=== PATIENT | male | born 1945 | race Caucasian/White ===

== ENCOUNTER 2020-12-17 00:45 | Inpatient (IN) ==
[2020-12-17] MEDS ORDERED: *HR* Promethazine 25 MG/ML VIAL IM PRN (05:14)
[2020-12-17] MEDS ORDERED: Naloxone 0.4 MG/ML INJ IVP PRN (05:14)
[2020-12-17] MEDS ORDERED: Melatonin 3 MG TABLET PO PRN (05:14)
[2020-12-17] MEDS ORDERED: Perflutren Lipid Microsphere 1.3 ML in 0.9 % Sodium Chloride 8.7 ML IVP PRN (05:17)
[2020-12-17] MEDS: Pantoprazole 40 MG in 0.9 % Sodium Chloride Mini Bag 100 ML IVC SCH ×4 (05:42→20:07)
[2020-12-17] MEDS: Ringers Solution, Lactated 1,000 ML IVC SCH ×2 (06:07→13:36)
[2020-12-17 07:05] LABS: Mean Corpuscular Hemoglobin 20.1 pg (28.0-33.3); Nucleated Red Blood Cells 0.6 /100 WBC (0)
[2020-12-17 07:06] LABS: INR 1.2; Prothrombin Time 14.1 Seconds (9.4-12.1)
[2020-12-17 07:07] LABS: Basophils # 0.1 K/mcL (0.0-0.2); Basophils % 0.5 %; Eosinophils # 0.1 K/mcL (0.0-0.6); Eosinophils % 0.8 %; Hematocrit 29.8 % (37.5-50.1); Hemoglobin 8.3 g/dL (12.9-16.9); Immature Granulocytes % 0.5 % (0-4); Lymphocytes # 1.6 K/mcL (0.6-4.6); Lymphocytes % 15.8 %; Mean Corpuscular HGB Conc 27.9 g/dL (31.6-35.5); Mean Corpuscular Volume 72.3 fL (83.0-100.0); Mean Platelet Volume 8.7 fL (9.4-12.4); Monocytes # 1.1 K/mcL (0.0-1.3); Monocytes % 10.8 %; Neutrophils # 7.2 K/mcL (1.6-8.9); Platelet Count 383 K/mcL (140-400); Red Blood Count 4.12 M/mcL (4.19-5.50); Red Cell Distribution Width 21.6 % (11.5-14.5); Segmented Neutrophils % 71.6 %
[2020-12-17 07:25] LABS: % Iron Saturation 7 % (20-55); Alanine Aminotransferase 16 Units/L (7-52); Albumin 3.7 g/dL (3.5-5.7); Albumin/Globulin Ratio 1.3 (1.1-2.2); Alkaline Phosphatase 31 Units/L (34-104); Aspartate Amino Transferase 16 Units/L (13-39); BUN/Creatinine Ratio 10 (6-26); Bilirubin,Total 0.8 mg/dL (0.3-1.0); Blood Urea Nitrogen 10 mg/dL (8-23); Calcium 8.7 mg/dL (8.6-10.3); Carbon Dioxide 21 mEq/L (23-29); Chloride 104 mEq/L (98-107); Globulin 2.8 g/dL (2.4-3.5); Glucose 107 mg/dL (70-105); Iron 31 mcg/dL (65-175); Magnesium 2.1 mg/dL (1.6-2.6); Osmolality,Calculated 278 (280-300); Potassium 4.1 mEq/L (3.5-5.1); Sodium 134 mEq/L (136-145); Total Protein 6.5 g/dL (6.4-8.9); Transferrin 332 mg/dL (203-362); eGFR For African Americans > 60 (> 60); eGFR For Non-African Americans > 60 (> 60)
[2020-12-17 07:56] LABS: Hypochromasia Present (Not Present); Platelet Estimate Normal (Normal)
[2020-12-17 07:59] LABS: Ferritin < 8 ng/mL (20-250)
[2020-12-17 08:11] LABS: Immature Reticulocyte % 56.1 % (11.0-38.0); Retculocyte # 0.06 M/mcL (0.05-0.10); Reticulocyte % 1.4 % (1.6-2.8)
[2020-12-17 11:15] LABS: Folate 16.2 ng/mL (3.0-16.0)
[2020-12-17 11:52] LABS: Hematocrit 30.4 % (37.5-50.1); Hemoglobin 8.5 g/dL (12.9-16.9)
[2020-12-17] MEDS ORDERED: Iron Sucrose Complex 200 MG in 0.9 % Sodium Chloride 100 ML IVPB ONE (12:13)
[2020-12-17] MEDS ORDERED: SODIUM CHLORIDE/NAHCO3/KCL/PEG 4,000 ML SOLN.RECON PO ONE (17:00)
[2020-12-17 23:03] LABS: Hematocrit 31.7 % (37.5-50.1); Hemoglobin 8.6 g/dL (12.9-16.9)
[2020-12-18] MEDS: Pantoprazole 40 MG in 0.9 % Sodium Chloride Mini Bag 100 ML IVC SCH ×5 (01:15→23:48)
[2020-12-18 01:50] LABS: Hematocrit 32.8 % (37.5-50.1); Nucleated Red Blood Cells 0.5 /100 WBC (0)
[2020-12-18 01:52] LABS: Basophils % 0.4 %; Eosinophils # 0.1 K/mcL (0.0-0.6); Eosinophils % 0.8 %; Hemoglobin 8.7 g/dL (12.9-16.9); Immature Granulocytes % 0.3 % (0-4); Lymphocytes # 1.3 K/mcL (0.6-4.6); Lymphocytes % 11.8 %; Mean Corpuscular HGB Conc 26.5 g/dL (31.6-35.5); Mean Corpuscular Hemoglobin 19.3 pg (28.0-33.3); Mean Corpuscular Volume 72.7 fL (83.0-100.0); Mean Platelet Volume 8.7 fL (9.4-12.4); Monocytes # 1.1 K/mcL (0.0-1.3); Monocytes % 10.3 %; Neutrophils # 8.3 K/mcL (1.6-8.9); Platelet Count 384 K/mcL (140-400); Red Blood Count 4.51 M/mcL (4.19-5.50); Red Cell Distribution Width 21.2 % (11.5-14.5); Segmented Neutrophils % 76.4 %; White Blood Count 10.9 K/mcL (4.3-11.1)
[2020-12-18 01:55] LABS: Hypochromasia Present (Not Present); Platelet Estimate Normal (Normal)
[2020-12-18 02:03] LABS: INR 1.3; Prothrombin Time 14.9 Seconds (9.4-12.1)
[2020-12-18 02:09] LABS: BUN/Creatinine Ratio 10 (6-26); Blood Urea Nitrogen 9 mg/dL (8-23); Calcium 7.8 mg/dL (8.6-10.3); Carbon Dioxide 22 mEq/L (23-29); Chloride 102 mEq/L (98-107); Glucose 114 mg/dL (70-105); Magnesium 1.8 mg/dL (1.6-2.6); Osmolality,Calculated 278 (280-300); Potassium 3.9 mEq/L (3.5-5.1); Sodium 134 mEq/L (136-145); eGFR For African Americans > 60 (> 60); eGFR For Non-African Americans > 60 (> 60)
[2020-12-18] MEDS ORDERED: *HR* Propofol 200 MG/20 ML VIAL IVP ONE ×2 (09:30→11:22)
[2020-12-18] MEDS ORDERED: Lidocaine -MPF 2% 2 ML VIAL ONE (09:31)
[2020-12-18 11:28] LABS: Influenza A PCR Negative (Negative); Influenza B PCR Negative (Negative); Resp. Syncytial Virus PCR Negative (Negative); SARS-CoV-2 by PCR (In House) Negative (Negative)
[2020-12-18] MEDS: Ondansetron 4 MG/2 ML VIAL IVP PRN (15:56)
[2020-12-18] MEDS ORDERED: Acetaminophen IV 1,000 MG/100 ML BAG IVPB ONE (16:28)
[2020-12-18] MEDS ORDERED: 0.9 % Sodium Chloride 1,000 ML IVC ONE (17:54)
[2020-12-18 18:14] LABS: Hematocrit 28.6 % (37.5-50.1); Hemoglobin 7.9 g/dL (12.9-16.9)
[2020-12-18 18:23] LABS: BUN/Creatinine Ratio 9 (6-26); Blood Urea Nitrogen 9 mg/dL (8-23); Calcium 7.3 mg/dL (8.6-10.3); Carbon Dioxide 19 mEq/L (23-29); Chloride 107 mEq/L (98-107); Glucose 102 mg/dL (70-105); Osmolality,Calculated 281 (280-300); Potassium 3.8 mEq/L (3.5-5.1); Sodium 136 mEq/L (136-145); eGFR For African Americans > 60 (> 60); eGFR For Non-African Americans > 60 (> 60)
[2020-12-18] MEDS: Piperacillin/Tazobactam 3.375 GM in 0.9 % Sodium Chloride Mini Bag 100 ML IVPB SCH ×2 (18:46→23:47)
[2020-12-18 19:02] LABS: Bilirubin,Urine Negative (Negative); Blood,Urine Negative (Negative); Clarity,Urine Clear (Clear); Color,Urine Colorless (Yellow); Glucose,Urine (UA) Normal (Normal); Ketones,Urine Trace mg/dL (Negative); Leukocyte Esterase,Urine Negative (Negative); Nitrite,Urine Negative (Negative); PH,Urine 6.5 pH Units (5.0-8.0); Protein,Urine Negative (Neg-Trace); Specific Gravity,Urine 1.011 (1.010-1.025); Urobilinogen,Urine Normal (Normal)
[2020-12-18 21:18] LABS: Hematocrit 29.1 % (37.5-50.1); Hemoglobin 7.9 g/dL (12.9-16.9)
[2020-12-19 06:45] LABS: Nucleated Red Blood Cells 0.1 /100 WBC (0); Segmented Neutrophils % 87.4 %
[2020-12-19 06:46] LABS: Basophils # 0.1 K/mcL (0.0-0.2); Basophils % 0.3 %; Hematocrit 29.1 % (37.5-50.1); Hemoglobin 7.8 g/dL (12.9-16.9); Immature Granulocytes % 0.5 % (0-4); Lymphocytes # 1.3 K/mcL (0.6-4.6); Lymphocytes % 5.6 %; Mean Corpuscular HGB Conc 26.8 g/dL (31.6-35.5); Mean Corpuscular Hemoglobin 19.8 pg (28.0-33.3); Mean Corpuscular Volume 73.9 fL (83.0-100.0); Mean Platelet Volume 9.4 fL (9.4-12.4); Monocytes # 1.4 K/mcL (0.0-1.3); Monocytes % 6.2 %; Platelet Count 348 K/mcL (140-400); Red Blood Count 3.94 M/mcL (4.19-5.50); Red Cell Distribution Width 22.4 % (11.5-14.5); White Blood Count 23.3 K/mcL (4.3-11.1)
[2020-12-19 06:48] LABS: Anisocytosis 1+ (Not Present); Hypochromasia Present (Not Present); Neutrophils # 20.4 K/mcL (1.6-8.9); Platelet Estimate Normal (Normal)
[2020-12-19] MEDS ORDERED: 0.9 % Sodium Chloride 250 ML IVC SCH (07:45)
[2020-12-19 09:11] LABS: BUN/Creatinine Ratio 8 (6-26); Blood Urea Nitrogen 7 mg/dL (8-23); Calcium 7.4 mg/dL (8.6-10.3); Carbon Dioxide 19 mEq/L (23-29); Chloride 107 mEq/L (98-107); Glucose 98 mg/dL (70-105); Osmolality,Calculated 282 (280-300); Potassium 3.6 mEq/L (3.5-5.1); Sodium 137 mEq/L (136-145); eGFR For African Americans > 60 (> 60); eGFR For Non-African Americans > 60 (> 60)
[2020-12-19] MEDS ORDERED: *HR* FentaNYL (PF) 100 MCG/2 ML VIAL ONE ×2 (09:26→10:54)
[2020-12-19] MEDS ORDERED: *HR* Midazolam HCl 2 MG/2 ML VIAL ONE (09:26)
[2020-12-19] MEDS ORDERED: *HR* Succinylcholine 200 MG/10 ML VIAL IVP ONE (09:26)
[2020-12-19] MEDS ORDERED: Ondansetron 4 MG/2 ML VIAL ONE (09:26)
[2020-12-19] MEDS ORDERED: *HR* Propofol 200 MG/20 ML VIAL IVP ONE (09:26)
[2020-12-19] MEDS ORDERED: *HR* Rocuronium Bromide 50 MG/5 ML VIAL ONE (09:26)
[2020-12-19] MEDS ORDERED: Lidocaine -MPF 2% 2 ML VIAL ONE (09:26)
[2020-12-19] MEDS ORDERED: Dexamethasone 4 MG/ML VIAL ONE (09:26)
[2020-12-19] MEDS ORDERED: Lidocaine HCL 4 ML Topical Solution (Laryng-O-Jet Kit Sterile Pak) TP ONE (09:26)
[2020-12-19] MEDS ORDERED: *HR* Phenylephrine 10 MG/ML VIAL ONE (09:30)
[2020-12-19] MEDS ORDERED: *HR* Etomidate 40 MG/20 ML VIAL IVP ONE (09:53)
[2020-12-19] MEDS ORDERED: Heparin 1,000 UNITS/500 mL 500 ML ONE (09:57)
[2020-12-19] MEDS: Piperacillin/Tazobactam 3.375 GM in 0.9 % Sodium Chloride Mini Bag 100 ML IVPB SCH ×2 (10:45→18:09)
[2020-12-19] MEDS ORDERED: *HR* OxyCODONE Immed Rel 5 MG TABLET PO PRN (11:26)
[2020-12-19] MEDS ORDERED: *HR* HYDROmorphone PF 0.5 MG/0.5 ML SYRINGE IVP PRN (11:26)
[2020-12-19] MEDS ORDERED: Sugammadex Sodium 200 MG/2 ML VIAL IV ONE (11:41)
[2020-12-19 17:16] LABS: Hematocrit 38.8 % (37.5-50.1); Hemoglobin 10.6 g/dL (12.9-16.9)
[2020-12-20] MEDS: Piperacillin/Tazobactam 3.375 GM in 0.9 % Sodium Chloride Mini Bag 100 ML IVPB SCH ×3 (03:14→18:38)
[2020-12-20 05:52] LABS: Lymphocytes % 2.9 %; Segmented Neutrophils % 91.7 %
[2020-12-20 05:53] LABS: Hematocrit 35.6 % (37.5-50.1); Immature Granulocytes % 0.5 % (0-4); Lymphocytes # 0.6 K/mcL (0.6-4.6); Mean Corpuscular HGB Conc 28.1 g/dL (31.6-35.5); Mean Corpuscular Volume 74.8 fL (83.0-100.0); Mean Platelet Volume 8.9 fL (9.4-12.4); Monocytes % 4.9 %; Neutrophils # 18.4 K/mcL (1.6-8.9); Nucleated Red Blood Cells 0.1 /100 WBC (0); Platelet Count 318 K/mcL (140-400); Red Blood Count 4.76 M/mcL (4.19-5.50); Red Cell Distribution Width 24.1 % (11.5-14.5); White Blood Count 20.1 K/mcL (4.3-11.1)
[2020-12-20 06:12] LABS: Anisocytosis 3+ (Not Present); Microcytosis Present (Not Present); Platelet Estimate Normal (Normal); Polychromasia 2+ (Not Present)
[2020-12-20 06:18] LABS: BUN/Creatinine Ratio 16 (6-26); Blood Urea Nitrogen 13 mg/dL (8-23); Calcium 7.6 mg/dL (8.6-10.3); Carbon Dioxide 22 mEq/L (23-29); Chloride 104 mEq/L (98-107); Glucose 141 mg/dL (70-105); Osmolality,Calculated 280 (280-300); Potassium 3.7 mEq/L (3.5-5.1); Sodium 134 mEq/L (136-145); eGFR For African Americans > 60 (> 60); eGFR For Non-African Americans > 60 (> 60)
[2020-12-20] MEDS: Ondansetron 4 MG/2 ML VIAL IVP PRN (16:41)
[2020-12-20] MEDS: Pantoprazole 40 MG VIAL IVP SCH (21:09)
[2020-12-21 01:21] LABS: Basophils % 0.1 %; Hemoglobin 11.5 g/dL (12.9-16.9); Red Cell Distribution Width 25.3 % (11.5-14.5)
[2020-12-21 01:23] LABS: Hematocrit 41.8 % (37.5-50.1); Immature Granulocytes % 0.4 % (0-4); Lymphocytes # 0.8 K/mcL (0.6-4.6); Mean Corpuscular HGB Conc 27.5 g/dL (31.6-35.5); Mean Corpuscular Hemoglobin 21.3 pg (28.0-33.3); Mean Corpuscular Volume 77.4 fL (83.0-100.0); Mean Platelet Volume 9.6 fL (9.4-12.4); Monocytes # 1.2 K/mcL (0.0-1.3); Monocytes % 5.8 %; Nucleated Red Blood Cells 0.2 /100 WBC (0); Platelet Count 428 K/mcL (140-400); Segmented Neutrophils % 89.7 %; White Blood Count 20.8 K/mcL (4.3-11.1)
[2020-12-21 01:29] LABS: Neutrophils # 18.7 K/mcL (1.6-8.9)
[2020-12-21 01:41] LABS: BUN/Creatinine Ratio 23 (6-26); Blood Urea Nitrogen 21 mg/dL (8-23); Calcium 7.9 mg/dL (8.6-10.3); Carbon Dioxide 23 mEq/L (23-29); Chloride 104 mEq/L (98-107); Glucose 121 mg/dL (70-105); Osmolality,Calculated 288 (280-300); Potassium 3.4 mEq/L (3.5-5.1); Sodium 137 mEq/L (136-145); eGFR For African Americans > 60 (> 60); eGFR For Non-African Americans > 60 (> 60)
[2020-12-21 02:09] LABS: Anisocytosis 2+ (Not Present); Hypochromasia Present (Not Present); Platelet Estimate Normal (Normal); Poikilocytosis 1+ (Not Present); Polychromasia 2+ (Not Present)
[2020-12-21] MEDS: Piperacillin/Tazobactam 3.375 GM in 0.9 % Sodium Chloride Mini Bag 100 ML IVPB SCH ×3 (03:39→23:57)
[2020-12-21] MEDS ORDERED: Potassium Chloride 40 MEQ, Lidocaine 1% 2 ML in 0.9 % Sodium Chloride 500 ML IVPB ONE (07:23)
[2020-12-21] MEDS ORDERED: 0.9 % Sodium Chloride 1,000 ML IVC SCH (09:45)
[2020-12-21] MEDS: Pantoprazole 40 MG VIAL IVP SCH ×2 (10:00→22:04)
[2020-12-21] MEDS: Azithromycin 500 MG in 0.9 % Sodium Chloride 250 ML IVPB SCH (10:00)
[2020-12-21 10:13] LABS: Bilirubin,Urine Negative (Negative); Blood,Urine Negative (Negative); Clarity,Urine Clear (Clear); Color,Urine Light-Yellow (Yellow); Glucose,Urine (UA) Normal (Normal); Ketones,Urine 10 mg/dL (Negative); Leukocyte Esterase,Urine Negative (Negative); Nitrite,Urine Negative (Negative); Protein,Urine Trace mg/dL (Neg-Trace); Specific Gravity,Urine 1.029 (1.010-1.025); Urobilinogen,Urine Normal (Normal)
[2020-12-21] MEDS ORDERED: chlorproMAZINE 25 MG in 0.9 % Sodium Chloride 100 ML IVPB ONE (10:15)
[2020-12-21] MEDS ORDERED: Prochlorperazine 10 MG/2 ML VIAL IM ONE (10:48)
[2020-12-21] MEDS: Levalbuterol Neb 0.63 MG/3 ML IH SCH ×3 (10:58→22:08)
[2020-12-21] MEDS: Metoclopramide 10 MG/2 ML VIAL IVP SCH ×3 (16:02→22:04)
[2020-12-22 03:50] LABS: Basophils % 0.2 %; Immature Granulocytes % 0.4 % (0-4)
[2020-12-22 03:52] LABS: Eosinophils % 0.1 %; Hematocrit 36.4 % (37.5-50.1); Lymphocytes % 7.7 %; Mean Corpuscular HGB Conc 27.5 g/dL (31.6-35.5); Mean Corpuscular Hemoglobin 21.2 pg (28.0-33.3); Mean Corpuscular Volume 77.1 fL (83.0-100.0); Monocytes # 1.1 K/mcL (0.0-1.3); Monocytes % 8.1 %; Nucleated Red Blood Cells 0.3 /100 WBC (0); Platelet Count 390 K/mcL (140-400); Red Blood Count 4.72 M/mcL (4.19-5.50); Red Cell Distribution Width 25.4 % (11.5-14.5); Segmented Neutrophils % 83.5 %; White Blood Count 13.5 K/mcL (4.3-11.1)
[2020-12-22 03:56] LABS: Neutrophils # 11.3 K/mcL (1.6-8.9)
[2020-12-22 04:00] LABS: Magnesium 2.2 mg/dL (1.6-2.6); Phosphorous 1.7 mg/dL (2.7-4.5)
[2020-12-22 04:01] LABS: BUN/Creatinine Ratio 25 (6-26); Blood Urea Nitrogen 19 mg/dL (8-23); Calcium 7.1 mg/dL (8.6-10.3); Carbon Dioxide 20 mEq/L (23-29); Chloride 110 mEq/L (98-107); Glucose 109 mg/dL (70-105); Osmolality,Calculated 291 (280-300); Potassium 3.8 mEq/L (3.5-5.1); Sodium 139 mEq/L (136-145); eGFR For African Americans > 60 (> 60); eGFR For Non-African Americans > 60 (> 60)
[2020-12-22] MEDS: Levalbuterol Neb 0.63 MG/3 ML IH SCH ×4 (04:21→22:47)
[2020-12-22] MEDS: Metoclopramide 10 MG/2 ML VIAL IVP SCH ×2 (04:48→12:50)
[2020-12-22] MEDS: Pantoprazole 40 MG in 0.9 % Sodium Chloride Mini Bag 100 ML IVC SCH ×2 (08:04→08:05)
[2020-12-22] MEDS: Piperacillin/Tazobactam 3.375 GM in 0.9 % Sodium Chloride Mini Bag 100 ML IVPB SCH ×3 (08:06→20:16)
[2020-12-22] MEDS: Pantoprazole 40 MG VIAL IVP SCH ×2 (08:29→18:55)
[2020-12-22] MEDS ORDERED: Potassium Phosphate 44 MEQ in 0.9 % Sodium Chloride 250 ML IVPB ONE ×2 (08:34→10:14)
[2020-12-22] MEDS: Azithromycin 500 MG in 0.9 % Sodium Chloride 250 ML IVPB SCH (08:40)
[2020-12-22] MEDS ORDERED: Ringers Solution, Lactated 1,000 ML IVC SCH (08:45)
[2020-12-22] MEDS ORDERED: *HR* Promethazine 25 MG/ML VIAL IM PRN (10:14)
[2020-12-22] MEDS ORDERED: Naloxone 0.4 MG/ML INJ IVP PRN (10:14)
[2020-12-22] MEDS ORDERED: Melatonin 3 MG TABLET PO PRN (10:14)
[2020-12-22] MEDS ORDERED: Ondansetron 4 MG/2 ML VIAL IVP PRN (10:14)
[2020-12-22] MEDS ORDERED: Piperacillin/Tazobactam 3.375 GM in 0.9 % Sodium Chloride Mini Bag 100 ML IVPB SCH (11:00)
[2020-12-22] MEDS: Ringers Solution, Lactated 1,000 ML IVC SCH (11:37)
[2020-12-23 02:35] LABS: Eosinophils % 0.8 %; Nucleated Red Blood Cells 0.2 /100 WBC (0); Red Cell Distribution Width 25.9 % (11.5-14.5)
[2020-12-23 02:37] LABS: Basophils % 0.4 %; Eosinophils # 0.1 K/mcL (0.0-0.6); Hematocrit 36.7 % (37.5-50.1); Hemoglobin 10.1 g/dL (12.9-16.9); Immature Granulocytes % 0.5 % (0-4); Lymphocytes # 1.1 K/mcL (0.6-4.6); Mean Corpuscular HGB Conc 27.5 g/dL (31.6-35.5); Mean Corpuscular Hemoglobin 21.5 pg (28.0-33.3); Mean Corpuscular Volume 78.3 fL (83.0-100.0); Mean Platelet Volume 9.1 fL (9.4-12.4); Monocytes # 0.9 K/mcL (0.0-1.3); Monocytes % 8.7 %; Neutrophils # 8.1 K/mcL (1.6-8.9); Platelet Count 379 K/mcL (140-400); Red Blood Count 4.69 M/mcL (4.19-5.50); Segmented Neutrophils % 78.6 %; White Blood Count 10.3 K/mcL (4.3-11.1)
[2020-12-23 02:49] LABS: BUN/Creatinine Ratio 20 (6-26); Blood Urea Nitrogen 13 mg/dL (8-23); Calcium 7.6 mg/dL (8.6-10.3); Carbon Dioxide 23 mEq/L (23-29); Chloride 109 mEq/L (98-107); Glucose 81 mg/dL (70-105); Osmolality,Calculated 293 (280-300); Potassium 3.6 mEq/L (3.5-5.1); Sodium 142 mEq/L (136-145); eGFR For African Americans > 60 (> 60); eGFR For Non-African Americans > 60 (> 60)
[2020-12-23 02:50] LABS: Phosphorous 1.9 mg/dL (2.7-4.5)
[2020-12-23 03:24] LABS: Anisocytosis 2+ (Not Present); Hypochromasia Present (Not Present)
[2020-12-23 03:25] LABS: Platelet Estimate Normal (Normal); Poikilocytosis 1+ (Not Present); Polychromasia 1+ (Not Present)
[2020-12-23] MEDS: Levalbuterol Neb 0.63 MG/3 ML IH SCH ×4 (04:12→22:35)
[2020-12-23] MEDS: Piperacillin/Tazobactam 3.375 GM in 0.9 % Sodium Chloride Mini Bag 100 ML IVPB SCH ×3 (04:55→21:02)
[2020-12-23] MEDS: Pantoprazole 40 MG VIAL IVP SCH ×2 (04:58→16:37)
[2020-12-23] MEDS: Ringers Solution, Lactated 1,000 ML IVC SCH (04:58)
[2020-12-23] MEDS ORDERED: Potassium Phosphate 44 MEQ in 0.9 % Sodium Chloride 250 ML IVPB ONE (07:16)
[2020-12-23] MEDS ORDERED: Azithromycin 500 MG in 0.9 % Sodium Chloride 250 ML IVPB SCH (08:00)
[2020-12-23] MEDS ORDERED: *HR* Labetalol 20 MG/4 ML SYRINGE IVP PRN (10:05)
[2020-12-23] MEDS: Metoclopramide 10 MG/2 ML VIAL IVP SCH ×3 (11:59→22:20)
[2020-12-23] MEDS: *HR* Heparin 5,000 UNIT/ML VIAL SQ SCH ×2 (13:53→21:01)
[2020-12-23] MEDS: CLEAR EYES NATURAL TEARS 15 ML BOTTLE BOTH EYES SCH ×3 (16:38→21:02)
[2020-12-24 02:44] LABS: Basophils % 0.4 %
[2020-12-24 02:45] LABS: Eosinophils # 0.1 K/mcL (0.0-0.6); Eosinophils % 1.3 %; Hematocrit 34.6 % (37.5-50.1); Hemoglobin 9.7 g/dL (12.9-16.9); Immature Granulocytes % 0.4 % (0-4); Mean Corpuscular Hemoglobin 21.9 pg (28.0-33.3); Mean Corpuscular Volume 78.1 fL (83.0-100.0); Monocytes # 0.9 K/mcL (0.0-1.3); Monocytes % 10.2 %; Neutrophils # 7.1 K/mcL (1.6-8.9); Platelet Count 328 K/mcL (140-400); Red Blood Count 4.43 M/mcL (4.19-5.50); Red Cell Distribution Width 26.1 % (11.5-14.5); Segmented Neutrophils % 76.7 %; White Blood Count 9.2 K/mcL (4.3-11.1)
[2020-12-24 03:04] LABS: Magnesium 1.7 mg/dL (1.6-2.6); Phosphorous 1.8 mg/dL (2.7-4.5)
[2020-12-24 03:05] LABS: BUN/Creatinine Ratio 15 (6-26); Blood Urea Nitrogen 9 mg/dL (8-23); Calcium 7.8 mg/dL (8.6-10.3); Carbon Dioxide 23 mEq/L (23-29); Chloride 107 mEq/L (98-107); Glucose 86 mg/dL (70-105); Osmolality,Calculated 284 (280-300); Potassium 3.5 mEq/L (3.5-5.1); Sodium 138 mEq/L (136-145); eGFR For African Americans > 60 (> 60); eGFR For Non-African Americans > 60 (> 60)
[2020-12-24] MEDS: Levalbuterol Neb 0.63 MG/3 ML IH SCH ×4 (03:44→21:49)
[2020-12-24 04:25] LABS: Anisocytosis 1+ (Not Present); Hypochromasia Present (Not Present); Platelet Estimate Normal (Normal); Poikilocytosis 1+ (Not Present)
[2020-12-24] MEDS: Pantoprazole 40 MG VIAL IVP SCH ×2 (04:47→16:59)
[2020-12-24] MEDS: *HR* Heparin 5,000 UNIT/ML VIAL SQ SCH ×3 (04:47→20:40)
[2020-12-24] MEDS: Piperacillin/Tazobactam 3.375 GM in 0.9 % Sodium Chloride Mini Bag 100 ML IVPB SCH ×3 (04:47→20:41)
[2020-12-24] MEDS: CLEAR EYES NATURAL TEARS 15 ML BOTTLE BOTH EYES SCH ×4 (08:45→20:42)
[2020-12-24] MEDS ORDERED: Potassium Phosphate 44 MEQ in 0.9 % Sodium Chloride 250 ML IVPB ONE (12:28)
[2020-12-25] MEDS ORDERED: chlorproMAZINE 25 MG in 0.9 % Sodium Chloride 100 ML IVPB ONE (01:44)
[2020-12-25] MEDS: Levalbuterol Neb 0.63 MG/3 ML IH SCH ×3 (03:48→15:17)
[2020-12-25] MEDS: Piperacillin/Tazobactam 3.375 GM in 0.9 % Sodium Chloride Mini Bag 100 ML IVPB SCH ×2 (04:31→11:58)
[2020-12-25] MEDS: Pantoprazole 40 MG VIAL IVP SCH (04:32)
[2020-12-25] MEDS: *HR* Heparin 5,000 UNIT/ML VIAL SQ SCH ×2 (04:33→15:02)
[2020-12-25 06:33] LABS: Basophils % 0.4 %; Eosinophils % 1.9 %
[2020-12-25 06:35] LABS: Eosinophils # 0.2 K/mcL (0.0-0.6); Hematocrit 34.8 % (37.5-50.1); Hemoglobin 9.7 g/dL (12.9-16.9); Immature Granulocytes % 0.4 % (0-4); Lymphocytes # 1.1 K/mcL (0.6-4.6); Lymphocytes % 11.4 %; Mean Corpuscular HGB Conc 27.9 g/dL (31.6-35.5); Mean Corpuscular Hemoglobin 21.9 pg (28.0-33.3); Mean Corpuscular Volume 78.6 fL (83.0-100.0); Mean Platelet Volume 9.4 fL (9.4-12.4); Monocytes % 9.7 %; Platelet Count 310 K/mcL (140-400); Red Blood Count 4.43 M/mcL (4.19-5.50); Red Cell Distribution Width 26.7 % (11.5-14.5); Segmented Neutrophils % 76.2 %; White Blood Count 9.9 K/mcL (4.3-11.1)
[2020-12-25 06:40] LABS: Neutrophils # 7.5 K/mcL (1.6-8.9)
[2020-12-25 06:59] LABS: Anisocytosis 2+ (Not Present); Hypochromasia Present (Not Present); Poikilocytosis 1+ (Not Present); Polychromasia 1+ (Not Present)
[2020-12-25 07:00] LABS: Platelet Estimate Normal (Normal)
[2020-12-25 07:56] LABS: BUN/Creatinine Ratio 16 (6-26); Blood Urea Nitrogen 11 mg/dL (8-23); Calcium 7.8 mg/dL (8.6-10.3); Carbon Dioxide 21 mEq/L (23-29); Chloride 106 mEq/L (98-107); Glucose 107 mg/dL (70-105); Osmolality,Calculated 280 (280-300); Phosphorous 1.7 mg/dL (2.7-4.5); Potassium 3.9 mEq/L (3.5-5.1); Sodium 135 mEq/L (136-145); eGFR For African Americans > 60 (> 60); eGFR For Non-African Americans > 60 (> 60)
[2020-12-25] MEDS: CLEAR EYES NATURAL TEARS 15 ML BOTTLE BOTH EYES SCH ×2 (09:49→13:00)
[2020-12-25 14:32] VITALS: BP 138/73
== END 2020-12-25 15:52 | disposition home health service (06) | DRG 329 ==
LOC: 2ANU → SUATTDRO 04:33
PROVIDERS: ADMIT Internal Medicine; ATTEND Student in an Organized Health Care Education/Training Program
PROC: ENDOCBX (2020-12-18 14:40)
PROC: ENDOEBX (2020-12-18 14:40)

== ENCOUNTER 2020-12-27 17:43 | Observation (INO) ==
[2020-12-27] MEDS ORDERED: Ondansetron 4 MG/2 ML VIAL IVP PRN (21:34)
[2020-12-27] MEDS ORDERED: Naloxone 0.4 MG/ML INJ IVP PRN (21:34)
[2020-12-27] MEDS ORDERED: Melatonin 3 MG TABLET PO PRN (21:34)
[2020-12-27] MEDS ORDERED: *HR* Heparin 5,000 UNIT/ML VIAL IVP PRN (22:21)
[2020-12-27] MEDS ORDERED: *HR* Heparin 5,000 UNIT/ML VIAL IVP ONE (22:21)
[2020-12-27 22:58] LABS: Mean Corpuscular HGB Conc 27.9 g/dL (31.6-35.5); Mean Platelet Volume 9.5 fL (9.4-12.4); Red Blood Count 4.41 M/mcL (4.19-5.50)
[2020-12-27 22:59] LABS: Hematocrit 35.5 % (37.5-50.1); Hemoglobin 9.9 g/dL (12.9-16.9); Mean Corpuscular Hemoglobin 22.4 pg (28.0-33.3); Mean Corpuscular Volume 80.5 fL (83.0-100.0); Platelet Count 290 K/mcL (140-400); Red Cell Distribution Width 26.5 % (11.5-14.5); White Blood Count 10.2 K/mcL (4.3-11.1)
[2020-12-27 23:11] LABS: Heparin anti-factor XA UFH < 0.04 IU/mL (0.30-0.70); INR 1.3; Prothrombin Time 14.9 Seconds (9.4-12.1)
[2020-12-27 23:13] LABS: Activated Partial Thrombo Time 28.2 Seconds (26.0-36.0)
[2020-12-28] MEDS: Heparin 25,000UNIT/250ML 1/2NS 25,000 UNIT/250 ML IV.SOLN IVC SCH ×2 (00:15→22:15)
[2020-12-28] MEDS ORDERED: Baclofen 10 MG TABLET PO ONE (02:45)
[2020-12-28 05:21] LABS: Bilirubin,Urine Negative (Negative); Blood,Urine Negative (Negative); Clarity,Urine Clear (Clear); Color,Urine Light-Yellow (Yellow); Glucose,Urine (UA) Normal (Normal); Ketones,Urine Negative (Negative); Leukocyte Esterase,Urine Negative (Negative); Nitrite,Urine Negative (Negative); PH,Urine 5.5 pH Units (5.0-8.0); Protein,Urine Trace mg/dL (Neg-Trace); Specific Gravity,Urine 1.019 (1.010-1.025); Urobilinogen,Urine Normal (Normal)
[2020-12-28 07:26] LABS: Hematocrit 34.3 % (37.5-50.1); Hemoglobin 9.7 g/dL (12.9-16.9); Mean Corpuscular HGB Conc 28.3 g/dL (31.6-35.5); Mean Corpuscular Hemoglobin 21.8 pg (28.0-33.3); Mean Corpuscular Volume 77.1 fL (83.0-100.0); Mean Platelet Volume 9.5 fL (9.4-12.4); Platelet Count 298 K/mcL (140-400); Red Blood Count 4.45 M/mcL (4.19-5.50); Red Cell Distribution Width 26.7 % (11.5-14.5); White Blood Count 9.7 K/mcL (4.3-11.1)
[2020-12-28 07:47] LABS: BUN/Creatinine Ratio 15 (6-26); Blood Urea Nitrogen 12 mg/dL (8-23); Calcium 8.6 mg/dL (8.6-10.3); Carbon Dioxide 21 mEq/L (23-29); Chloride 106 mEq/L (98-107); Glucose 109 mg/dL (70-105); Osmolality,Calculated 280 (280-300); Potassium 3.8 mEq/L (3.5-5.1); Sodium 135 mEq/L (136-145); eGFR For African Americans > 60 (> 60); eGFR For Non-African Americans > 60 (> 60)
[2020-12-28 07:52] LABS: Troponin I 0.05 ng/mL (< 0.04)
[2020-12-28] MEDS: lisinopriL 20 MG TABLET PO SCH (10:04)
[2020-12-28] MEDS ORDERED: Metoclopramide 10 MG/2 ML VIAL IVP ONE (11:21)
[2020-12-28] MEDS: *HR* Heparin 5,000 UNIT/ML VIAL IVP PRN (15:28)
[2020-12-28 15:53] LABS: Hematocrit 32.3 % (37.5-50.1); Hemoglobin 9.3 g/dL (12.9-16.9)
[2020-12-28] MEDS ORDERED: Pantoprazole 40 MG VIAL IVP ONE (16:37)
[2020-12-28] MEDS ORDERED: chlorproMAZINE 25 MG TABLET PO ONE (22:43)
[2020-12-29 04:11] LABS: Basophils # 0.1 K/mcL (0.0-0.2); Basophils % 0.7 %; Eosinophils # 0.2 K/mcL (0.0-0.6); Eosinophils % 1.9 %; Hematocrit 32.1 % (37.5-50.1); Hemoglobin 9.2 g/dL (12.9-16.9); Immature Granulocytes % 0.3 % (0-4); Lymphocytes # 1.5 K/mcL (0.6-4.6); Lymphocytes % 16.4 %; Mean Corpuscular HGB Conc 28.7 g/dL (31.6-35.5); Mean Corpuscular Hemoglobin 22.5 pg (28.0-33.3); Mean Corpuscular Volume 78.5 fL (83.0-100.0); Mean Platelet Volume 9.3 fL (9.4-12.4); Monocytes % 11.4 %; Platelet Count 275 K/mcL (140-400); Red Blood Count 4.09 M/mcL (4.19-5.50); Red Cell Distribution Width 26.3 % (11.5-14.5); Segmented Neutrophils % 69.3 %; White Blood Count 8.9 K/mcL (4.3-11.1)
[2020-12-29 04:16] LABS: Neutrophils # 6.2 K/mcL (1.6-8.9)
[2020-12-29 04:29] LABS: BUN/Creatinine Ratio 18 (6-26); Blood Urea Nitrogen 14 mg/dL (8-23); Calcium 8.3 mg/dL (8.6-10.3); Carbon Dioxide 21 mEq/L (23-29); Chloride 104 mEq/L (98-107); Glucose 104 mg/dL (70-105); Osmolality,Calculated 277 (280-300); Potassium 3.7 mEq/L (3.5-5.1); Sodium 133 mEq/L (136-145); eGFR For African Americans > 60 (> 60); eGFR For Non-African Americans > 60 (> 60)
[2020-12-29 04:49] LABS: Anisocytosis 2+ (Not Present); Hypochromasia Present (Not Present); Poikilocytosis 1+ (Not Present)
[2020-12-29 04:50] LABS: Ovalocytes 1+ (Not Present)
[2020-12-29] MEDS: *HR* Heparin 5,000 UNIT/ML VIAL IVP PRN (04:57)
[2020-12-29] MEDS: Multivit/Ca/Min/Fe/FA 1 TAB TABLET PO SCH (08:31)
[2020-12-29] MEDS: lisinopriL 20 MG TABLET PO SCH (08:31)
[2020-12-29] MEDS: Aspirin Enteric Coated 81 MG Tablet PO SCH (08:31)
[2020-12-29] MEDS ORDERED: chlorproMAZINE 25 MG TABLET PO ONE ×2 (10:35→21:12)
[2020-12-29] MEDS: Heparin 25,000UNIT/250ML 1/2NS 25,000 UNIT/250 ML IV.SOLN IVC SCH (19:10)
[2020-12-30 06:17] LABS: Basophils % 0.6 %; Immature Granulocytes % 0.4 % (0-4); Mean Platelet Volume 9.5 fL (9.4-12.4)
[2020-12-30 06:19] LABS: Basophils # 0.1 K/mcL (0.0-0.2); Eosinophils # 0.2 K/mcL (0.0-0.6); Hematocrit 33.3 % (37.5-50.1); Hemoglobin 9.4 g/dL (12.9-16.9); Lymphocytes # 1.2 K/mcL (0.6-4.6); Mean Corpuscular HGB Conc 28.2 g/dL (31.6-35.5); Mean Corpuscular Volume 77.8 fL (83.0-100.0); Monocytes % 11.6 %; Neutrophils # 6.1 K/mcL (1.6-8.9); Platelet Count 335 K/mcL (140-400); Red Blood Count 4.28 M/mcL (4.19-5.50); Red Cell Distribution Width 26.3 % (11.5-14.5); Segmented Neutrophils % 71.4 %; White Blood Count 8.5 K/mcL (4.3-11.1)
[2020-12-30 06:47] LABS: BUN/Creatinine Ratio 16 (6-26); Blood Urea Nitrogen 11 mg/dL (8-23); Calcium 8.7 mg/dL (8.6-10.3); Carbon Dioxide 21 mEq/L (23-29); Chloride 105 mEq/L (98-107); Glucose 108 mg/dL (70-105); Osmolality,Calculated 280 (280-300); Potassium 3.7 mEq/L (3.5-5.1); Sodium 135 mEq/L (136-145); eGFR For African Americans > 60 (> 60); eGFR For Non-African Americans > 60 (> 60)
[2020-12-30 07:17] LABS: Anisocytosis 2+ (Not Present); Hypochromasia Present (Not Present)
[2020-12-30 07:18] LABS: Platelet Estimate Normal (Normal); Poikilocytosis 1+ (Not Present)
[2020-12-30] MEDS: lisinopriL 20 MG TABLET PO SCH (10:48)
[2020-12-30] MEDS: Multivit/Ca/Min/Fe/FA 1 TAB TABLET PO SCH (10:49)
[2020-12-30] MEDS: Apixaban 5 MG TABLET PO SCH ×2 (10:49→20:21)
[2020-12-30] MEDS: Aspirin Enteric Coated 81 MG Tablet PO SCH (10:49)
[2020-12-30] MEDS: chlorproMAZINE 25 MG TABLET PO PRN (16:24)
[2020-12-31 05:47] LABS: Basophils % 0.5 %; Eosinophils # 0.2 K/mcL (0.0-0.6); Eosinophils % 2.4 %; Hematocrit 34.4 % (37.5-50.1); Hemoglobin 9.9 g/dL (12.9-16.9); Immature Granulocytes % 0.2 % (0-4); Lymphocytes # 1.1 K/mcL (0.6-4.6); Lymphocytes % 12.8 %; Mean Corpuscular HGB Conc 28.8 g/dL (31.6-35.5); Mean Corpuscular Volume 76.6 fL (83.0-100.0); Mean Platelet Volume 9.5 fL (9.4-12.4); Monocytes % 11.7 %; Platelet Count 416 K/mcL (140-400); Red Blood Count 4.49 M/mcL (4.19-5.50); Red Cell Distribution Width 26.4 % (11.5-14.5); Segmented Neutrophils % 72.4 %; White Blood Count 8.3 K/mcL (4.3-11.1)
[2020-12-31 06:12] LABS: BUN/Creatinine Ratio 14 (6-26); Blood Urea Nitrogen 10 mg/dL (8-23); Carbon Dioxide 23 mEq/L (23-29); Chloride 104 mEq/L (98-107); Glucose 103 mg/dL (70-105); Osmolality,Calculated 279 (280-300); Potassium 3.8 mEq/L (3.5-5.1); Sodium 135 mEq/L (136-145); eGFR For African Americans > 60 (> 60); eGFR For Non-African Americans > 60 (> 60)
[2020-12-31 06:51] LABS: Anisocytosis 1+ (Not Present); Hypochromasia Present (Not Present); Platelet Estimate Normal (Normal); Poikilocytosis 1+ (Not Present)
[2020-12-31] MEDS: Apixaban 5 MG TABLET PO SCH ×2 (10:22→20:26)
[2020-12-31] MEDS: chlorproMAZINE 25 MG TABLET PO PRN ×2 (10:22→23:45)
[2020-12-31] MEDS: Multivit/Ca/Min/Fe/FA 1 TAB TABLET PO SCH (10:22)
[2020-12-31] MEDS: lisinopriL 20 MG TABLET PO SCH (10:22)
[2020-12-31] MEDS: Aspirin Enteric Coated 81 MG Tablet PO SCH (10:22)
[2021-01-01 04:31] LABS: Hemoglobin 9.5 g/dL (12.9-16.9)
[2021-01-01] MEDS: lisinopriL 20 MG TABLET PO SCH (10:47)
[2021-01-01] MEDS: Multivit/Ca/Min/Fe/FA 1 TAB TABLET PO SCH (10:47)
[2021-01-01] MEDS: Aspirin Enteric Coated 81 MG Tablet PO SCH (10:47)
[2021-01-01] MEDS: Apixaban 5 MG TABLET PO SCH ×2 (11:32→21:46)
[2021-01-01 20:34] LABS: Adenovirus F 40/41 PCR Not detected (Not detect); Astrovirus PCR Not detected (Not detect); C.difficile Toxin A/B Gene PCR Not detected (Not detect); Campylobacter by PCR Not detected (Not detect); Cryptosporidium by PCR Not detected (Not detect); Cyclospora cayetanensis PCR Not detected (Not detect); E. coli O157 by PCR Not detected (Not detect); Entamoeba histolytica PCR Not detected (Not detect); Enteroaggregative E.coli(EAEC) Not detected (Not detect); Enteropathogenic E.coli(EPEC) Not detected (Not detect); Enterotoxigenic E.coli (ETEC) Not detected (Not detect); Giardia lamblia PCR Not detected (Not detect); Norovirus GI/GII PCR Not detected (Not detect); Plesiomonas shigelloides PCR Not detected (Not detect); Rotavirus A PCR Not detected (Not detect); Salmonella PCR Not detected (Not detect); Sapovirus PCR Not detected (Not detect); Shig/EnteroinvasiveE coli EIEC Not detected (Not detect); Shigalike tox-prod E coli STEC Not detected (Not detect); Vibrio PCR Not detected (Not detect); Vibrio cholerae PCR Not detected (Not detect); Yersinia enterocolitica PCR Not detected (Not detect)
[2021-01-02 04:34] LABS: Hematocrit 34.8 % (37.5-50.1); Hemoglobin 10.1 g/dL (12.9-16.9)
[2021-01-02] MEDS: Aspirin Enteric Coated 81 MG Tablet PO SCH (10:34)
[2021-01-02] MEDS: lisinopriL 20 MG TABLET PO SCH (10:34)
[2021-01-02] MEDS: Multivit/Ca/Min/Fe/FA 1 TAB TABLET PO SCH (10:34)
[2021-01-02] MEDS: Apixaban 5 MG TABLET PO SCH (10:34)
[2021-01-02 15:30] LABS: Adenovirus Not Detected (Not Detect); Bordetella Pertussis Not Detected (Not Detect); Chlamydophila pneumoniae Not Detected (Not Detect); Coronavirus 229E Not Detected (Not Detect); Coronavirus HKU1 Not Detected (Not Detect); Coronavirus NL63 Not Detected (Not Detect); Coronavirus OC43 Not Detected (Not Detect); Human Metapneumovirus Not Detected (Not Detect); Human Rhinovirus/Enterovirus Not Detected (Not Detect); Influenza A Subtype 2009 H1 Not Detected (Not Detect); Influenza B Not Detected (Not Detect); Mycoplasma pneumoniae Not Detected (Not Detect); Parainfluenza Virus 1 Not Detected (Not Detect); Parainfluenza Virus 2 Not Detected (Not Detect); Parainfluenza Virus 3 Not Detected (Not Detect); Parainfluenza Virus 4 Not Detected (Not Detect); Respiratory Syncytial Virus Not Detected (Not Detect); SARS-CoV-2 Not Detected (Not Detect)
[2021-01-02 16:21] VITALS: BP 122/69
[2021-01-06] MEDS ORDERED: Apixaban 5 MG TABLET PO SCH (21:00)
== END 2021-01-02 17:15 | disposition other institution (70) ==
LOC: 3ANU → SUATTDRO 20:38
PROVIDERS: ADMIT Family Medicine; ATTEND Internal Medicine

== ENCOUNTER 2021-01-29 14:42 | Observation (INO) ==
[2021-01-29 16:17] LABS: BUN/Creatinine Ratio 21 (6-26); Blood Urea Nitrogen 17 mg/dL (8-23); Calcium 9.1 mg/dL (8.6-10.3); Carbon Dioxide 26 mEq/L (23-29); Chloride 107 mEq/L (98-107); Glucose 111 mg/dL (70-105); Osmolality,Calculated 290 (280-300); Potassium 4.2 mEq/L (3.5-5.1); Sodium 139 mEq/L (136-145); eGFR For African Americans > 60 (> 60); eGFR For Non-African Americans > 60 (> 60)
[2021-01-29 16:21] LABS: INR 1.5; Prothrombin Time 17.6 Seconds (9.4-12.1)
[2021-01-29 16:54] LABS: Basophils % 0.5 %; Eosinophils # 0.1 K/mcL (0.0-0.6); Hematocrit 24.4 % (37.5-50.1); Hemoglobin 7.2 g/dL (12.9-16.9); Immature Granulocytes % 0.2 % (0-4); Lymphocytes # 1.4 K/mcL (0.6-4.6); Lymphocytes % 21.4 %; Mean Corpuscular HGB Conc 29.5 g/dL (31.6-35.5); Mean Corpuscular Hemoglobin 25.7 pg (28.0-33.3); Mean Corpuscular Volume 87.1 fL (83.0-100.0); Mean Platelet Volume 9.2 fL (9.4-12.4); Monocytes # 0.8 K/mcL (0.0-1.3); Monocytes % 11.8 %; Neutrophils # 4.2 K/mcL (1.6-8.9); Platelet Count 324 K/mcL (140-400); Red Cell Distribution Width 25.2 % (11.5-14.5); Segmented Neutrophils % 64.1 %; White Blood Count 6.5 K/mcL (4.3-11.1)
[2021-01-29 17:00] LABS: Anisocytosis 2+ (Not Present); Platelet Estimate Normal (Normal)
[2021-01-29] MEDS ORDERED: Pantoprazole 40 MG VIAL IVP ONE (18:26)
[2021-01-29] MEDS ORDERED: Naloxone 0.4 MG/ML INJ IVP PRN (20:03)
[2021-01-29] MEDS ORDERED: Acetaminophen 325 MG TABLET PO PRN (20:03)
[2021-01-29] MEDS ORDERED: SODIUM CHLORIDE/NAHCO3/KCL/PEG 4,000 ML SOLN.RECON PO ONE (21:56)
[2021-01-29] MEDS ORDERED: 0.9 % Sodium Chloride 250 ML ONE (21:59)
[2021-01-30 02:36] LABS: Basophils % 0.3 %; Eosinophils # 0.1 K/mcL (0.0-0.6); Eosinophils % 1.8 %; Hematocrit 27.6 % (37.5-50.1); Immature Granulocytes % 0.1 % (0-4); Lymphocytes # 1.4 K/mcL (0.6-4.6); Lymphocytes % 19.6 %; Mean Corpuscular Hemoglobin 25.7 pg (28.0-33.3); Mean Corpuscular Volume 88.7 fL (83.0-100.0); Mean Platelet Volume 9.2 fL (9.4-12.4); Monocytes # 0.7 K/mcL (0.0-1.3); Monocytes % 10.1 %; Neutrophils # 4.9 K/mcL (1.6-8.9); Platelet Count 326 K/mcL (140-400); Red Blood Count 3.11 M/mcL (4.19-5.50); Red Cell Distribution Width 22.5 % (11.5-14.5); Segmented Neutrophils % 68.1 %; White Blood Count 7.2 K/mcL (4.3-11.1)
[2021-01-30 02:42] LABS: INR 1.4; Prothrombin Time 15.7 Seconds (9.4-12.1)
[2021-01-30 02:52] LABS: BUN/Creatinine Ratio 19 (6-26); Blood Urea Nitrogen 15 mg/dL (8-23); Calcium 8.6 mg/dL (8.6-10.3); Carbon Dioxide 22 mEq/L (23-29); Chloride 107 mEq/L (98-107); Glucose 109 mg/dL (70-105); Osmolality,Calculated 285 (280-300); Potassium 3.9 mEq/L (3.5-5.1); Sodium 137 mEq/L (136-145); eGFR For African Americans > 60 (> 60); eGFR For Non-African Americans > 60 (> 60)
[2021-01-30] MEDS: Pantoprazole 40 MG VIAL IVP SCH ×2 (05:30→18:08)
[2021-01-30 11:42] LABS: Hematocrit 27.6 % (37.5-50.1); Hemoglobin 8.2 g/dL (12.9-16.9)
[2021-01-30 12:13] LABS: Iron 20 mcg/dL (65-175)
[2021-01-30 12:20] LABS: Ferritin 24 ng/mL (20-250)
[2021-01-30 12:47] LABS: Folate > 22.3 ng/mL (3.0-16.0); Vitamin B12 449 pg/mL (250-1100)
[2021-01-30 12:53] LABS: % Iron Saturation 5 % (20-55); Transferrin 276 mg/dL (203-362)
[2021-01-30 13:06] LABS: Adenovirus Not Detected (Not Detect); Bordetella Pertussis Not Detected (Not Detect); Chlamydophila pneumoniae Not Detected (Not Detect); Coronavirus 229E Not Detected (Not Detect); Coronavirus HKU1 Not Detected (Not Detect); Coronavirus NL63 Not Detected (Not Detect); Coronavirus OC43 Not Detected (Not Detect); Human Metapneumovirus Not Detected (Not Detect); Human Rhinovirus/Enterovirus Not Detected (Not Detect); Influenza A Subtype 2009 H1 Not Detected (Not Detect); Influenza B Not Detected (Not Detect); Mycoplasma pneumoniae Not Detected (Not Detect); Parainfluenza Virus 1 Not Detected (Not Detect); Parainfluenza Virus 2 Not Detected (Not Detect); Parainfluenza Virus 3 Not Detected (Not Detect); Parainfluenza Virus 4 Not Detected (Not Detect); Respiratory Syncytial Virus Not Detected (Not Detect); SARS-CoV-2 Not Detected (Not Detect)
[2021-01-30 14:07] LABS: Bilirubin,Direct 0.1 mg/dL (0.0-0.2); Bilirubin,Indirect 0.5 mg/dL (0.0-1.0); Bilirubin,Total 0.6 mg/dL (0.3-1.0)
[2021-01-30] MEDS ORDERED: *HR* FentaNYL (PF) 100 MCG/2 ML VIAL ONE (14:33)
[2021-01-30] MEDS ORDERED: Ondansetron 4 MG/2 ML VIAL ONE (14:38)
[2021-01-30] MEDS ORDERED: 0.9 % Sodium Chloride 500 ML IVC SCH (15:45)
[2021-01-30] MEDS ORDERED: *HR* Propofol 500 MG/50 ML BOTTLE IVP ONE (17:53)
[2021-01-30] MEDS ORDERED: Lidocaine -MPF 2% 5 ML VIAL SQ ONE (17:53)
[2021-01-30] MEDS ORDERED: Iron Sucrose Complex 400 MG in 0.9 % Sodium Chloride 250 ML IVPB ONE (19:00)
[2021-01-31] MEDS: Pantoprazole 40 MG VIAL IVP SCH (05:39)
[2021-01-31 06:50] LABS: Basophils % 0.3 %; Eosinophils # 0.1 K/mcL (0.0-0.6); Eosinophils % 1.7 %; Hematocrit 27.5 % (37.5-50.1); Hemoglobin 8.1 g/dL (12.9-16.9); Immature Granulocytes % 0.3 % (0-4); Lymphocytes # 1.1 K/mcL (0.6-4.6); Lymphocytes % 18.1 %; Mean Corpuscular HGB Conc 29.5 g/dL (31.6-35.5); Mean Corpuscular Hemoglobin 25.6 pg (28.0-33.3); Mean Corpuscular Volume 86.8 fL (83.0-100.0); Mean Platelet Volume 8.8 fL (9.4-12.4); Monocytes # 0.7 K/mcL (0.0-1.3); Monocytes % 11.6 %; Neutrophils # 4.1 K/mcL (1.6-8.9); Platelet Count 295 K/mcL (140-400); Red Blood Count 3.17 M/mcL (4.19-5.50); Red Cell Distribution Width 22.4 % (11.5-14.5)
[2021-01-31 07:12] LABS: Alanine Aminotransferase 19 Units/L (7-52); Albumin 3.5 g/dL (3.5-5.7); Albumin/Globulin Ratio 1.5 (1.1-2.2); Alkaline Phosphatase 29 Units/L (34-104); Aspartate Amino Transferase 13 Units/L (13-39); BUN/Creatinine Ratio 11 (6-26); Bilirubin,Total 0.5 mg/dL (0.3-1.0); Blood Urea Nitrogen 8 mg/dL (8-23); Calcium 8.3 mg/dL (8.6-10.3); Carbon Dioxide 23 mEq/L (23-29); Chloride 106 mEq/L (98-107); Globulin 2.3 g/dL (2.4-3.5); Glucose 92 mg/dL (70-105); Magnesium 1.6 mg/dL (1.6-2.6); Osmolality,Calculated 280 (280-300); Phosphorous 2.4 mg/dL (2.7-4.5); Potassium 3.7 mEq/L (3.5-5.1); Sodium 136 mEq/L (136-145); Total Protein 5.8 g/dL (6.4-8.9); eGFR For African Americans > 60 (> 60); eGFR For Non-African Americans > 60 (> 60)
[2021-01-31] MEDS ORDERED: carvediloL 6.25 MG TABLET PO SCH (08:00)
[2021-01-31] MEDS ORDERED: Multivit/Ca/Min/Fe/FA 1 TAB TABLET PO SCH (09:00)
[2021-01-31] MEDS ORDERED: FERROUS SULFATE 27 MG PO SCH (09:00)
[2021-01-31] MEDS ORDERED: amLODIPine 5 MG TABLET PO SCH (09:00)
[2021-01-31] MEDS ORDERED: lisinopriL 20 MG TABLET PO SCH (09:00)
[2021-01-31] MEDS ORDERED: cilostazoL 100 MG TABLET PO SCH (09:00)
[2021-01-31 10:56] VITALS: BP 107/59
[2021-01-31] MEDS: Calcium Gluconate 1gm/50mL 1 GM/50 ML BAG IVPB SCH ×2 (11:06→11:38)
[2021-01-31 14:46] LABS: Hematocrit 31.5 % (37.5-50.1); Hemoglobin 9.1 g/dL (12.9-16.9)
== END 2021-01-31 17:54 | disposition home health service (06) ==
LOC: 3ANU 14:42 → EMEROOARM 14:42 → SUATTDRO 18:42 → 3ANU 19:37
PROVIDERS: ADMIT Internal Medicine; ATTEND Internal Medicine
PROC: ENDOCCB (2021-01-30 11:30)

== ENCOUNTER 2021-12-08 08:31 | Observation (INO) ==
[2021-12-08 09:29] LABS: Basophils # 0.1 K/mcL (0.0-0.2); Basophils % 0.8 %; Eosinophils # 0.1 K/mcL (0.0-0.6); Eosinophils % 1.8 %; Hemoglobin 13.2 g/dL (12.9-16.9); Immature Granulocytes % 0.5 % (0-4); Lymphocytes # 0.8 K/mcL (0.6-4.6); Mean Corpuscular HGB Conc 31.4 g/dL (31.6-35.5); Mean Corpuscular Hemoglobin 29.3 pg (28.0-33.3); Mean Corpuscular Volume 93.1 fL (83.0-100.0); Mean Platelet Volume 9.5 fL (9.4-12.4); Monocytes # 0.8 K/mcL (0.0-1.3); Monocytes % 12.2 %; Neutrophils # 4.5 K/mcL (1.6-8.9); Platelet Count 300 K/mcL (140-400); Red Blood Count 4.51 M/mcL (4.19-5.50); Segmented Neutrophils % 71.7 %; White Blood Count 6.3 K/mcL (4.3-11.1)
[2021-12-08 09:50] LABS: Bilirubin,Urine Negative (Negative); Blood,Urine Negative (Negative); Clarity,Urine Clear (Clear); Color,Urine Colorless (Yellow); Glucose,Urine (UA) >=1000 mg/dL (Normal); Ketones,Urine Trace mg/dL (Negative); Leukocyte Esterase,Urine Negative (Negative); Mucus,Urine Few per lpf (None-Few); Nitrite,Urine Negative (Negative); Protein,Urine Negative (Neg-Trace); RBC,Urine 0-3 per hpf (0-3); Specific Gravity,Urine 1.026 (1.010-1.025); Urobilinogen,Urine Normal (Normal); WBC,Urine 0-3 per hpf (0-3)
[2021-12-08 09:50] LABS: Alanine Aminotransferase 23 Units/L (7-52); Albumin 4.1 g/dL (3.5-5.7); Albumin/Globulin Ratio 1.5 (1.1-2.2); Alkaline Phosphatase 46 Units/L (34-104); Aspartate Amino Transferase 19 Units/L (13-39); BUN/Creatinine Ratio 14 (6-26); Bilirubin,Total 0.4 mg/dL (0.3-1.0); Blood Urea Nitrogen 19 mg/dL (8-23); Calcium 9.4 mg/dL (8.6-10.3); Carbon Dioxide 26 mEq/L (23-29); Chloride 94 mEq/L (98-107); Globulin 2.7 g/dL (2.4-3.5); Glucose 410 mg/dL (70-105); Osmolality,Calculated 288 (280-300); Potassium 5.5 mEq/L (3.5-5.1); Sodium 129 mEq/L (136-145); Total Protein 6.8 g/dL (6.4-8.9); eGFR For African Americans > 60 (> 60); eGFR For Non-African Americans 51 (> 60)
[2021-12-08] MEDS ORDERED: 0.9 % Sodium Chloride 1,000 ML IV ONE (09:59)
[2021-12-08 10:46] LABS: Estimated Average Glucose 324 mg/dl; Hemoglobin A1C 12.9 %
[2021-12-08] MEDS ORDERED: Naloxone 0.4 MG/ML INJ IVP PRN (11:36)
[2021-12-08] MEDS ORDERED: Insulin Human Regular 10 UNIT in 0.9 % Sodium Chloride 10 ML IV ONE (11:37)
[2021-12-08] MEDS ORDERED: *HR* Dextrose 50 % in Water (Syg) 50 ML SYRINGE IVP PRN (11:40)
[2021-12-08] MEDS ORDERED: D5% in Water 1,000 ML IVC PRN (11:40)
[2021-12-08] MEDS ORDERED: Dextrose 4 GM Chewable Tablets PO PRN ×2 (11:40)
[2021-12-08] MEDS ORDERED: Calcium Gluconate 1gm/50mL 1 GM/50 ML BAG IVPB ONE (11:41)
[2021-12-08] MEDS ORDERED: 0.9 % Sodium Chloride 1,000 ML IVC SCH (11:45)
[2021-12-08] MEDS: Insulin DETEMIR 100 UNIT/ML X5UNITS SUBQ SCH (12:42)
[2021-12-08] MEDS: Insulin LISPRO 300 UNITS/3 ML VIAL SUBQ SCH ×2 (13:48→16:15)
[2021-12-08 13:58] LABS: BUN/Creatinine Ratio 17 (6-26); Blood Urea Nitrogen 17 mg/dL (8-23); Carbon Dioxide 23 mEq/L (23-29); Chloride 102 mEq/L (98-107); Glucose 279 mg/dL (70-105); Magnesium 1.8 mg/dL (1.6-2.6); Osmolality,Calculated 286 (280-300); Potassium 4.6 mEq/L (3.5-5.1); Sodium 132 mEq/L (136-145); eGFR For African Americans > 60 (> 60); eGFR For Non-African Americans > 60 (> 60)
[2021-12-08] MEDS: cilostazoL 100 MG TABLET PO SCH (20:08)
[2021-12-08] MEDS: carvediloL 6.25 MG TABLET PO SCH (20:09)
[2021-12-08] MEDS: Apixaban 5 MG TABLET PO SCH (20:12)
[2021-12-08] MEDS ORDERED: Insulin LISPRO 300 UNITS/3 ML VIAL SUBQ SCH (21:00)
[2021-12-09 05:52] LABS: Basophils % 0.8 %; Eosinophils # 0.2 K/mcL (0.0-0.6); Eosinophils % 2.9 %; Hematocrit 41.9 % (37.5-50.1); Hemoglobin 13.5 g/dL (12.9-16.9); Immature Granulocytes % 0.2 % (0-4); Lymphocytes % 18.5 %; Mean Corpuscular HGB Conc 32.2 g/dL (31.6-35.5); Mean Corpuscular Hemoglobin 29.9 pg (28.0-33.3); Mean Corpuscular Volume 92.7 fL (83.0-100.0); Mean Platelet Volume 9.2 fL (9.4-12.4); Monocytes # 0.7 K/mcL (0.0-1.3); Monocytes % 13.4 %; Neutrophils # 3.4 K/mcL (1.6-8.9); Platelet Count 289 K/mcL (140-400); Red Blood Count 4.52 M/mcL (4.19-5.50); Segmented Neutrophils % 64.2 %; White Blood Count 5.2 K/mcL (4.3-11.1)
[2021-12-09 06:11] LABS: BUN/Creatinine Ratio 14 (6-26); Blood Urea Nitrogen 12 mg/dL (8-23); Carbon Dioxide 24 mEq/L (23-29); Chloride 100 mEq/L (98-107); Glucose 237 mg/dL (70-105); Osmolality,Calculated 279 (280-300); Potassium 4.3 mEq/L (3.5-5.1); Sodium 131 mEq/L (136-145); eGFR For African Americans > 60 (> 60); eGFR For Non-African Americans > 60 (> 60)
[2021-12-09 07:18] VITALS: PULSE 83
[2021-12-09] MEDS: cilostazoL 100 MG TABLET PO SCH (07:42)
[2021-12-09] MEDS: Insulin LISPRO 300 UNITS/3 ML VIAL SUBQ SCH ×2 (07:43→11:28)
[2021-12-09] MEDS: carvediloL 6.25 MG TABLET PO SCH (07:43)
[2021-12-09] MEDS: Apixaban 5 MG TABLET PO SCH (07:44)
[2021-12-09] MEDS: Insulin DETEMIR 100 UNIT/ML X5UNITS SUBQ SCH (07:44)
[2021-12-09] MEDS ORDERED: amLODIPine 5 MG TABLET PO SCH (09:00)
[2021-12-09] MEDS ORDERED: Aspirin Enteric Coated 81 MG Tablet PO SCH (09:00)
[2021-12-09] MEDS ORDERED: Nystatin POWDER 30 GM BOTTLE TP SCH (09:00)
[2021-12-09 11:13] VITALS: BP 129/76; TEMP 98; O2SAT 95
== END 2021-12-09 13:21 | disposition home or self-care (01) ==
LOC: EMEROOARM 08:31 → 2ANU 08:31 → SUATTDRO 11:44 → 2ANU 13:01
PROVIDERS: ADMIT Internal Medicine; ATTEND Internal Medicine

== ENCOUNTER 2022-02-12 14:04 | Inpatient (IN) ==
[2022-02-12] MEDS ORDERED: Acetaminophen 325 MG TABLET PO PRN (19:03)
[2022-02-12] MEDS ORDERED: Melatonin 3 MG TABLET PO PRN (19:03)
[2022-02-12] MEDS ORDERED: *HR* OxyCODONE Immed Rel 5 MG TABLET PO PRN (19:03)
[2022-02-12] MEDS ORDERED: Naloxone 0.4 MG/ML INJ IVP PRN (19:03)
[2022-02-12] MEDS ORDERED: Ondansetron 4 MG/2 ML VIAL IVP PRN (19:03)
[2022-02-12] MEDS ORDERED: Piperacillin/Tazobactam 3.375 GM in 0.9 % Sodium Chloride Mini Bag 100 ML IVPB STA (19:08)
[2022-02-12] MEDS: 0.9 % Sodium Chloride 1,000 ML IVC SCH (20:53)
[2022-02-12] MEDS: carvediloL 6.25 MG TABLET PO SCH (20:54)
[2022-02-12] MEDS: cilostazoL 100 MG TABLET PO SCH (20:55)
[2022-02-12] MEDS: Insulin DETEMIR 100 UNIT/ML X5UNITS SUBQ SCH (22:41)
[2022-02-13] MEDS: 0.9 % Sodium Chloride 1,000 ML IVC SCH (05:25)
[2022-02-13 05:56] LABS: Hematocrit 37.2 % (37.5-50.1); Hemoglobin 11.3 g/dL (12.9-16.9); Mean Corpuscular HGB Conc 30.4 g/dL (31.6-35.5); Mean Corpuscular Hemoglobin 27.4 pg (28.0-33.3); Mean Corpuscular Volume 90.1 fL (83.0-100.0); Platelet Count 284 K/mcL (140-400); Red Blood Count 4.13 M/mcL (4.19-5.50); Red Cell Distribution Width 14.7 % (11.5-14.5)
[2022-02-13 06:58] LABS: Alanine Aminotransferase 19 Units/L (7-52); Albumin 3.3 g/dL (3.5-5.7); Albumin/Globulin Ratio 1.1 (1.1-2.2); Alkaline Phosphatase 51 Units/L (34-104); Aspartate Amino Transferase 20 Units/L (13-39); BUN/Creatinine Ratio 25 (6-26); Bilirubin,Total 0.6 mg/dL (0.3-1.0); Blood Urea Nitrogen 20 mg/dL (8-23); Calcium 8.2 mg/dL (8.6-10.3); Carbon Dioxide 24 mEq/L (23-29); Chloride 104 mEq/L (98-107); Globulin 3.1 g/dL (2.4-3.5); Glucose 90 mg/dL (70-105); Osmolality,Calculated 286 (280-300); Potassium 3.9 mEq/L (3.5-5.1); Sodium 137 mEq/L (136-145); Total Protein 6.4 g/dL (6.4-8.9); eGFR For African Americans > 60 (> 60); eGFR For Non-African Americans > 60 (> 60)
[2022-02-13] MEDS ORDERED: Perflutren Lipid Microsphere 1.3 ML in 0.9 % Sodium Chloride 8.7 ML IVP PRN (08:56)
[2022-02-13] MEDS: Piperacillin/Tazobactam 3.375 GM in 0.9 % Sodium Chloride Mini Bag 100 ML IVPB SCH ×3 (08:59→23:30)
[2022-02-13] MEDS: carvediloL 6.25 MG TABLET PO SCH ×2 (09:20→17:02)
[2022-02-13] MEDS: amLODIPine 5 MG TABLET PO SCH (09:20)
[2022-02-13] MEDS: Aspirin Enteric Coated 81 MG Tablet PO SCH (09:20)
[2022-02-13] MEDS: cilostazoL 100 MG TABLET PO SCH ×2 (09:21→20:32)
[2022-02-13] MEDS: Insulin DETEMIR 100 UNIT/ML X5UNITS SUBQ SCH ×2 (09:23→21:34)
[2022-02-13] MEDS: *HR* Heparin 5,000 UNIT/ML VIAL SQ SCH (17:03)
[2022-02-13] MEDS ORDERED: *HR* FentaNYL (PF) 100 MCG/2 ML VIAL ONE (19:25)
[2022-02-13] MEDS ORDERED: *HR* Propofol 200 MG/20 ML VIAL IVP ONE (19:25)
[2022-02-13] MEDS ORDERED: Lidocaine -MPF 2% 2 ML VIAL ONE (19:26)
[2022-02-13] MEDS ORDERED: Lidocaine HCL 4 ML Topical Solution (Laryng-O-Jet Kit Sterile Pak) TP ONE (19:26)
[2022-02-13] MEDS ORDERED: Ondansetron 4 MG/2 ML VIAL ONE (19:26)
[2022-02-13] MEDS ORDERED: Sugammadex Sodium 200 MG/2 ML VIAL IV ONE (19:26)
[2022-02-13] MEDS ORDERED: *HR* Rocuronium Bromide 50 MG/5 ML VIAL ONE (19:26)
[2022-02-13] MEDS ORDERED: *HR* Succinylcholine 200 MG/10 ML VIAL IVP ONE (19:26)
[2022-02-13] MEDS ORDERED: Ondansetron 4 MG/2 ML VIAL IVP PRN (21:55)
[2022-02-13] MEDS ORDERED: *HR* HYDROmorphone PF 0.5 MG/0.5 ML SYRINGE IVP PRN (21:55)
[2022-02-13] MEDS ORDERED: *HR* FentaNYL (PF) 100 MCG/2 ML VIAL IVP PRN (21:55)
[2022-02-14] MEDS: *HR* Heparin 5,000 UNIT/ML VIAL SQ SCH ×2 (05:11→17:09)
[2022-02-14] MEDS ORDERED: Dextrose Gel 15 GM/37.5 ML TUBE PO PRN ×4 (06:35→18:39)
[2022-02-14] MEDS ORDERED: D5% in Water 1,000 ML IVC PRN ×2 (06:35→18:39)
[2022-02-14] MEDS ORDERED: *HR* Dextrose 50 % in Water (Syg) 50 ML SYRINGE IVP PRN ×2 (06:35→18:39)
[2022-02-14] MEDS: Aspirin Enteric Coated 81 MG Tablet PO SCH (08:47)
[2022-02-14] MEDS: Insulin DETEMIR 100 UNIT/ML X5UNITS SUBQ SCH ×2 (08:47→20:53)
[2022-02-14] MEDS: cilostazoL 100 MG TABLET PO SCH ×2 (08:47→20:53)
[2022-02-14] MEDS: amLODIPine 5 MG TABLET PO SCH (08:54)
[2022-02-14] MEDS: Piperacillin/Tazobactam 3.375 GM in 0.9 % Sodium Chloride Mini Bag 100 ML IVPB SCH ×3 (08:54→19:43)
[2022-02-14] MEDS: carvediloL 6.25 MG TABLET PO SCH ×2 (08:54→17:09)
[2022-02-14] MEDS ORDERED: D5% in 0.45% NACL 1,000 ML IVC SCH ×2 (10:30→18:39)
[2022-02-14 11:01] LABS: Hematocrit 37.5 % (37.5-50.1); Hemoglobin 11.4 g/dL (12.9-16.9); Mean Corpuscular HGB Conc 30.4 g/dL (31.6-35.5); Mean Corpuscular Volume 88.9 fL (83.0-100.0); Mean Platelet Volume 9.4 fL (9.4-12.4); Platelet Count 297 K/mcL (140-400); Red Blood Count 4.22 M/mcL (4.19-5.50); Red Cell Distribution Width 14.7 % (11.5-14.5); White Blood Count 13.7 K/mcL (4.3-11.1)
[2022-02-14 11:08] LABS: Albumin 3.3 g/dL (3.5-5.7); Bilirubin,Direct 0.2 mg/dL (0.0-0.2); Bilirubin,Indirect 0.5 mg/dL (0.0-1.0); Bilirubin,Total 0.7 mg/dL (0.3-1.0); Globulin 3.2 g/dL (2.4-3.5); Total Protein 6.5 g/dL (6.4-8.9)
[2022-02-14 11:09] LABS: BUN/Creatinine Ratio 22 (6-26); Blood Urea Nitrogen 16 mg/dL (8-23); Calcium 8.3 mg/dL (8.6-10.3); Carbon Dioxide 23 mEq/L (23-29); Chloride 102 mEq/L (98-107); Glucose 89 mg/dL (70-105); Osmolality,Calculated 277 (280-300); Potassium 3.7 mEq/L (3.5-5.1); Sodium 133 mEq/L (136-145); eGFR For African Americans > 60 (> 60); eGFR For Non-African Americans > 60 (> 60)
[2022-02-14] MEDS ORDERED: *HR* Propofol 200 MG/20 ML VIAL IVP ONE (14:02)
[2022-02-14] MEDS ORDERED: Ondansetron 4 MG/2 ML VIAL ONE (14:02)
[2022-02-14] MEDS ORDERED: *HR* Rocuronium Bromide 50 MG/5 ML VIAL ONE (14:02)
[2022-02-14] MEDS ORDERED: Lidocaine -MPF 2% 2 ML VIAL ONE (14:02)
[2022-02-14] MEDS ORDERED: *HR* FentaNYL (PF) 100 MCG/2 ML VIAL ONE ×2 (14:02→16:48)
[2022-02-14] MEDS ORDERED: *HR* Succinylcholine 200 MG/10 ML VIAL IVP ONE ×2 (14:02→16:13)
[2022-02-14] MEDS ORDERED: Lidocaine HCL 4 ML Topical Solution (Laryng-O-Jet Kit Sterile Pak) TP ONE (14:02)
[2022-02-14] MEDS ORDERED: Sugammadex Sodium 200 MG/2 ML VIAL IV ONE (16:13)
[2022-02-14] MEDS ORDERED: CefOXitin 2,000 MG VIAL ONE ×2 (16:15→16:33)
[2022-02-14] MEDS ORDERED: *HR* FentaNYL (PF) 100 MCG/2 ML VIAL IVP PRN (16:36)
[2022-02-14] MEDS ORDERED: Acetaminophen IV 1,000 MG/100 ML BAG IVPB ONE (17:46)
[2022-02-14] MEDS ORDERED: *HR* OxyCODONE Immed Rel 5 MG TABLET PO PRN (18:39)
[2022-02-14] MEDS ORDERED: Naloxone 0.4 MG/ML INJ IVP PRN (18:39)
[2022-02-14] MEDS ORDERED: Acetaminophen 325 MG TABLET PO PRN (18:39)
[2022-02-14] MEDS ORDERED: Ondansetron 4 MG/2 ML VIAL IVP PRN (18:39)
[2022-02-15 04:50] LABS: Alanine Aminotransferase 41 Units/L (7-52); Albumin 2.9 g/dL (3.5-5.7); Albumin/Globulin Ratio 0.9 (1.1-2.2); Alkaline Phosphatase 73 Units/L (34-104); Aspartate Amino Transferase 47 Units/L (13-39); BUN/Creatinine Ratio 26 (6-26); Bilirubin,Direct 0.3 mg/dL (0.0-0.2); Bilirubin,Indirect 0.4 mg/dL (0.0-1.0); Bilirubin,Total 0.7 mg/dL (0.3-1.0); Blood Urea Nitrogen 19 mg/dL (8-23); Carbon Dioxide 20 mEq/L (23-29); Chloride 104 mEq/L (98-107); Globulin 3.3 g/dL (2.4-3.5); Glucose 210 mg/dL (70-105); Osmolality,Calculated 284 (280-300); Potassium 4.5 mEq/L (3.5-5.1); Sodium 133 mEq/L (136-145); Total Protein 6.2 g/dL (6.4-8.9); eGFR For African Americans > 60 (> 60); eGFR For Non-African Americans > 60 (> 60)
[2022-02-15 05:34] LABS: Hematocrit 35.1 % (37.5-50.1); Hemoglobin 11.1 g/dL (12.9-16.9); Mean Corpuscular HGB Conc 31.6 g/dL (31.6-35.5); Mean Corpuscular Hemoglobin 27.7 pg (28.0-33.3); Mean Corpuscular Volume 87.5 fL (83.0-100.0); Mean Platelet Volume 10.3 fL (9.4-12.4); Platelet Count 308 K/mcL (140-400); Red Blood Count 4.01 M/mcL (4.19-5.50); Red Cell Distribution Width 14.6 % (11.5-14.5); White Blood Count 18.5 K/mcL (4.3-11.1)
[2022-02-15] MEDS ORDERED: *HR* Heparin 5,000 UNIT/ML VIAL SQ SCH (06:00)
[2022-02-15] MEDS: Piperacillin/Tazobactam 3.375 GM in 0.9 % Sodium Chloride Mini Bag 100 ML IVPB SCH ×3 (06:22→18:30)
[2022-02-15] MEDS: cilostazoL 100 MG TABLET PO SCH ×2 (08:37→23:12)
[2022-02-15] MEDS: carvediloL 6.25 MG TABLET PO SCH ×2 (08:38→16:22)
[2022-02-15] MEDS: amLODIPine 5 MG TABLET PO SCH (08:38)
[2022-02-15] MEDS: Aspirin Enteric Coated 81 MG Tablet PO SCH (08:38)
[2022-02-15] MEDS: Apixaban 5 MG TABLET PO SCH ×2 (08:38→23:12)
[2022-02-15] MEDS: Insulin DETEMIR 100 UNIT/ML X5UNITS SUBQ SCH ×2 (08:39→23:11)
[2022-02-15] MEDS ORDERED: D5% in 0.45% NACL 1,000 ML IVC SCH (10:00)
[2022-02-16 01:52] LABS: Hematocrit 33.7 % (37.5-50.1); Hemoglobin 10.4 g/dL (12.9-16.9); Mean Corpuscular HGB Conc 30.9 g/dL (31.6-35.5); Mean Corpuscular Hemoglobin 27.2 pg (28.0-33.3); Mean Platelet Volume 9.5 fL (9.4-12.4); Platelet Count 348 K/mcL (140-400); Red Blood Count 3.83 M/mcL (4.19-5.50); Red Cell Distribution Width 14.8 % (11.5-14.5)
[2022-02-16 02:05] LABS: BUN/Creatinine Ratio 21 (6-26); Blood Urea Nitrogen 19 mg/dL (8-23); Calcium 7.7 mg/dL (8.6-10.3); Carbon Dioxide 27 mEq/L (23-29); Chloride 102 mEq/L (98-107); Glucose 116 mg/dL (70-105); Osmolality,Calculated 283 (280-300); Potassium 3.7 mEq/L (3.5-5.1); Sodium 135 mEq/L (136-145); eGFR For African Americans > 60 (> 60); eGFR For Non-African Americans > 60 (> 60)
[2022-02-16] MEDS: Piperacillin/Tazobactam 3.375 GM in 0.9 % Sodium Chloride Mini Bag 100 ML IVPB SCH ×3 (02:08→19:13)
[2022-02-16] MEDS: carvediloL 6.25 MG TABLET PO SCH ×2 (08:41→17:23)
[2022-02-16] MEDS: Aspirin Enteric Coated 81 MG Tablet PO SCH (08:42)
[2022-02-16] MEDS: amLODIPine 5 MG TABLET PO SCH (08:43)
[2022-02-16] MEDS: cilostazoL 100 MG TABLET PO SCH ×2 (08:43→20:20)
[2022-02-16] MEDS: Apixaban 5 MG TABLET PO SCH ×2 (08:44→20:20)
[2022-02-16] MEDS: Insulin DETEMIR 100 UNIT/ML X5UNITS SUBQ SCH ×2 (08:47→20:20)
[2022-02-16] MEDS: Metoclopramide 20 MG in 0.9 % Sodium Chloride 50 ML IVPB SCH ×2 (09:35→19:12)
[2022-02-16] MEDS: Pregabalin 50 MG CAPSULE PO SCH ×3 (09:37→20:20)
[2022-02-16] MEDS ORDERED: chlorproMAZINE 25 MG in 0.9 % Sodium Chloride 100 ML IVPB ONE (10:34)
[2022-02-17] MEDS: Metoclopramide 20 MG in 0.9 % Sodium Chloride 50 ML IVPB SCH ×2 (00:23→07:23)
[2022-02-17] MEDS: Melatonin 3 MG TABLET PO PRN (00:24)
[2022-02-17] MEDS: Piperacillin/Tazobactam 3.375 GM in 0.9 % Sodium Chloride Mini Bag 100 ML IVPB SCH (03:55)
[2022-02-17 06:15] LABS: Hematocrit 31.2 % (37.5-50.1); Hemoglobin 9.5 g/dL (12.9-16.9); Mean Corpuscular HGB Conc 30.4 g/dL (31.6-35.5); Mean Corpuscular Hemoglobin 27.1 pg (28.0-33.3); Mean Corpuscular Volume 89.1 fL (83.0-100.0); Mean Platelet Volume 9.6 fL (9.4-12.4); Platelet Count 344 K/mcL (140-400); White Blood Count 9.3 K/mcL (4.3-11.1)
[2022-02-17 06:28] LABS: BUN/Creatinine Ratio 22 (6-26); Blood Urea Nitrogen 17 mg/dL (8-23); Calcium 7.5 mg/dL (8.6-10.3); Carbon Dioxide 26 mEq/L (23-29); Chloride 103 mEq/L (98-107); Glucose 98 mg/dL (70-105); Osmolality,Calculated 284 (280-300); Potassium 3.7 mEq/L (3.5-5.1); Sodium 136 mEq/L (136-145); eGFR For African Americans > 60 (> 60); eGFR For Non-African Americans > 60 (> 60)
[2022-02-17] MEDS: carvediloL 6.25 MG TABLET PO SCH ×2 (07:18→15:54)
[2022-02-17] MEDS: Pregabalin 50 MG CAPSULE PO SCH ×3 (07:18→20:44)
[2022-02-17] MEDS: Aspirin Enteric Coated 81 MG Tablet PO SCH (07:18)
[2022-02-17] MEDS: amLODIPine 5 MG TABLET PO SCH (07:18)
[2022-02-17] MEDS: Apixaban 5 MG TABLET PO SCH ×2 (07:19→20:43)
[2022-02-17] MEDS: cilostazoL 100 MG TABLET PO SCH ×2 (07:19→20:43)
[2022-02-17] MEDS: Insulin DETEMIR 100 UNIT/ML X5UNITS SUBQ SCH ×2 (07:23→20:51)
[2022-02-17] MEDS ORDERED: chlorproMAZINE 25 MG in 0.9 % Sodium Chloride 100 ML IVPB ONE (10:46)
[2022-02-18] MEDS: Apixaban 5 MG TABLET PO SCH ×2 (09:37→21:27)
[2022-02-18] MEDS: amLODIPine 5 MG TABLET PO SCH (09:37)
[2022-02-18] MEDS: Pregabalin 50 MG CAPSULE PO SCH (09:37)
[2022-02-18] MEDS: cilostazoL 100 MG TABLET PO SCH ×2 (09:38→21:27)
[2022-02-18] MEDS: Aspirin Enteric Coated 81 MG Tablet PO SCH (09:38)
[2022-02-18] MEDS: Insulin DETEMIR 100 UNIT/ML X5UNITS SUBQ SCH ×2 (09:46→21:27)
[2022-02-18] MEDS: carvediloL 6.25 MG TABLET PO SCH ×2 (09:46→17:42)
[2022-02-19] MEDS: Melatonin 3 MG TABLET PO PRN (02:44)
[2022-02-19 07:17] VITALS: PULSE 77
[2022-02-19] MEDS: Aspirin Enteric Coated 81 MG Tablet PO SCH (09:20)
[2022-02-19] MEDS: amLODIPine 5 MG TABLET PO SCH (09:20)
[2022-02-19] MEDS: cilostazoL 100 MG TABLET PO SCH (09:21)
[2022-02-19] MEDS: carvediloL 6.25 MG TABLET PO SCH (09:21)
[2022-02-19] MEDS: Apixaban 5 MG TABLET PO SCH (09:22)
[2022-02-19] MEDS: Insulin DETEMIR 100 UNIT/ML X5UNITS SUBQ SCH (09:27)
[2022-02-19 11:26] VITALS: BP 143/78; TEMP 97.4; O2SAT 94
== END 2022-02-19 15:33 | disposition other institution (70) | DRG 854 ==
LOC: 3ANU → SUATTDRO 02-13 11:43
PROVIDERS: ADMIT Internal Medicine; ATTEND Internal Medicine